=== PATIENT | female | born 1990 | race Caucasian/White ===

== ENCOUNTER 2021-03-07 11:52 | Outpatient (CLI) | payer OTHER ==
[2021-03-07 18:54] LABS: RESPIRATORY SYNCYTIAL VIRUS POSITIVE (Negative)
== END 2021-03-07 23:59 ==
LOC: LAB.N 11:52
PROVIDERS: ATTEND Family Medicine
DX: R07.0 Pain in throat (principal); Z20.822 Contact with and (suspected) exposure to COVID-19
CPT/HCPCS: 87070; 87280

== ENCOUNTER 2021-04-01 15:54 | Outpatient (CLI) | payer OTHER ==
--- NOTE | 2021-04-02 08:29 | Ultrasound Report ---
PROCEDURE: OB First Trimester INDICATIONS: positive test OUTSIDE/PRIOR DATING DATA: Last menstrual period (LMP): 01/08/2021. LMP-based estimated date of delivery (JOE): 10/15/2021. First dating scan (date and location): 04/01/2021. Estimated date of delivery (JOE) from first dating scan: 10/21/2021. TECHNIQUE: Real-time scanning was performed of the fetus and maternal pelvic organs, with image documentation. COMPARISON: None FINDINGS: Embryo: A single living intrauterine gestation is present with a heart rate of 185 bpm. [place]- rump length is 41 mm, corresponding to an 11 week 0 day gestation. Yolk sac is not seen. Measurement variability in dating: +/- 4 weeks by LMP, +/- 7 days by mean sac diameter (use before 6 weeks gestation if crown-rump length not able to be measured), +/- 5 days by crown-rump length (6-12 weeks gestation). Maternal organs: Ovaries demonstrate a right-sided corpus luteal cyst measuring 25 mm.. IMPRESSION: Single living intrauterine gestation as described above. Reviewed by: Rigoberto Borrego MD on 04/02/2021 8:28 AM PST Approved by: Rigoberto Borrego MD on 04/02/2021 8:28 AM PST Station ID: [id number]
== END 2021-04-01 15:55 | disposition home or self-care (01) ==
LOC: DI 15:54
PROVIDERS: ATTEND Obstetrics & Gynecology
DX: Z32.01 Encounter for pregnancy test, result positive (principal); Z36.89 Encounter for other specified antenatal screening
CPT/HCPCS: 36415; 85025; 86592; 86762; 86787; 86803; 86850; 86900; 86901; 87340; 87389

== ENCOUNTER 2021-04-01 16:09 | Outpatient (CLI) | payer OTHER ==
[2021-04-01 16:50] LABS: BASOPHILS % (AUTO) 0.2 %; EOSINOPHILS # (AUTO) 0.2 10^3/uL (0.0-0.7); EOSINOPHILS % (AUTO) 1.2 %; HCT - HEMATOCRIT 41.3 % (37.0-47.0); LYMPHOCYTES # (AUTO) 2.5 10^3/uL (1.5-3.5); LYMPHOCYTES % (AUTO) 19.2 %; MEAN CORPUSCULAR HEMOGLOBIN 30.7 pg (27.0-31.0); MEAN CORPUSCULAR HGB CONC 33.9 g/dL (32.0-36.0); MEAN CORPUSCULAR VOLUME 90.6 fL (81.0-99.0); MEAN PLATELET VOLUME 9.8 fL (7.9-10.8); MONOCYTES # (AUTO) 0.9 10^3/uL (0.0-1.0); NEUTROPHILS # (AUTO) 9.4 10^3/uL (1.5-6.6); PLT - PLATELET COUNT 381 10^3/uL (130-450); RED BLOOD COUNT 4.56 10^6/uL (4.20-5.40); RED CELL DISTRIBUTION WIDTH 12.1 % (12.0-15.0)
[2021-04-04 09:20] LABS: HEPATITIS B SURFACE ANTIGEN NON-REACTIVE (NON-REACTIVE); HEPATITIS C ANTIBODY NON-REACTIVE (NON-REACTIVE)
[2021-04-04 15:06] LABS: HIV AG/AB 4TH GEN NON-REACTIVE (NON-REACTIVE)
== END 2021-04-01 16:10 | disposition home or self-care (01) ==
LOC: LAB 16:09
PROVIDERS: ATTEND Obstetrics & Gynecology
DX: Z36.89 Encounter for other specified antenatal screening (principal)
CPT/HCPCS: 36415; 85025; 86592; 86762; 86787; 86803; 86850; 86900; 86901; 87340; 87389

== ENCOUNTER 2021-05-29 18:09 | Outpatient (CLI) | payer OTHER ==
--- NOTE | 2021-05-30 08:59 | Ultrasound Report ---
PROCEDURE: OB Detailed Eval INDICATIONS: NORMAL SUPERVISION OUTSIDE/PRIOR DATING DATA: Last menstrual period (LMP): 01/08/2021. LMP-based estimated date of delivery (JOE): 10/15/2021. First dating scan (date and location): 11 weeks 0 days. Estimated date of delivery (JOE) from first dating scan: 10/22/2019. The below data below was generated using the ultrasound derived JOE of TECHNIQUE: Real-time scanning was performed of the fetus, with image documentation and biometric measurements. COMPARISON: None. FINDINGS: General: A single living intrauterine gestation is present. Presentation: Variable Placenta: Placental position is posterior, without previa. Amniotic fluid index: 13.6 cm, normal for gestational age. heart rate: 155 beats per minute. Maternal cervical canal: 4.0 cm long; normal length is 2.5 cm or more. biometrics: Biparietal diameter: 4.0 cm. 18 weeks 1 day Head circumference: 15.7 cm. 18 weeks 4 days Abdominal circumference: 12.9 cm. 18 weeks 3 days Femur length: 2.8 cm. 18 weeks 6 days Estimated gestational age from initial scan: 19 weeks 2 days. Composite gestational age from present scan: 18 weeks 3 days Estimated weight and percentile: 249.2 g. 14.3% Measurement variability in biometric dating: +/- 10 days from 12-20 weeks gestation, +/- 2 weeks from 20-30 weeks gestation, +/- 3 weeks at 30 weeks gestation or later. Anatomic survey: Neuro: Ventricles are normal at less than 10 mm. Cisterna magna is normal at 3-11 mm. Cerebellum i s normal in size and morphology. Nuchal skin fold: Normal at less than 6 mm between 14 and 20 weeks gestational age. Face: Nose and lips, facial profile are normal. Spine: No evidence for spina bifida. Heart: Not well seen, however limited views appear normal. Diaphragm: Diaphragm is intact. Stomach: Left-sided stomach is present. Kidneys: No hydronephrosis. Normal is less than 5 mm in 2nd trimester, less than 7 mm in 3rd trimester. Cord: 3 vessel cord has orthotopic insertion. Bladder: Not well seen, however limited views appear normal. Extremities: All 4 extremities are visualized. IMPRESSION: 1. Live intrauterine with a composite ultrasound age of 19 weeks 2 days by initial scan. 2. Estimated weight 249.2 g which is at the 14.3%tile. 3. Visualized anatomy is normal. Reviewed by: Parveen Bobo on 05/30/2021 8:58 AM BEULAH Approved by: Parveen Bobo on 05/30/2021 8:58 AM [facility] Station ID: [id number]
== END 2021-05-29 18:10 | disposition home or self-care (01) ==
LOC: DI 18:09
PROVIDERS: ATTEND Obstetrics & Gynecology
DX: Z34.80 Encounter for supervision of other normal pregnancy, unspecified trimester (principal); Z36.89 Encounter for other specified antenatal screening

== ENCOUNTER 2021-07-19 15:32 | Outpatient (CLI) | payer OTHER ==
[2021-07-19 16:12] LABS: HCT - HEMATOCRIT 38.1 % (37.0-47.0); HGB - HEMOGLOBIN 12.8 g/dL (12.0-16.0); MEAN CORPUSCULAR HEMOGLOBIN 30.8 pg (27.0-31.0); MEAN CORPUSCULAR HGB CONC 33.6 g/dL (32.0-36.0); MEAN CORPUSCULAR VOLUME 91.8 fL (81.0-99.0); MEAN PLATELET VOLUME 9.9 fL (7.9-10.8); RED BLOOD COUNT 4.15 10^6/uL (4.20-5.40); RED CELL DISTRIBUTION WIDTH 12.8 % (12.0-15.0); WHITE BLOOD COUNT 14.9 x10^3/uL (4.8-10.8)
== END 2021-07-19 15:33 | disposition home or self-care (01) ==
LOC: LAB 15:32
PROVIDERS: ATTEND Obstetrics & Gynecology
DX: Z36.89 Encounter for other specified antenatal screening (principal); Z67.91 Unspecified blood type, Rh negative
CPT/HCPCS: 36415; 85027; 86850

== ENCOUNTER 2021-09-09 15:13 | Outpatient (CLI) | payer OTHER ==
[2021-09-09 16:02] LABS: BILIRUBIN,URINE NEGATIVE (NEGATIVE); GLUCOSE, URINE (UA) NEGATIVE (NEGATIVE); KETONES,URINE (UA) NEGATIVE (NEGATIVE); LEUKOCYTE ESTERASE, URINE NEGATIVE (NEGATIVE); NITRITE,URINE NEGATIVE (NEGATIVE); OCCULT BLOOD,URINE NEGATIVE (NEGATIVE); PH,URINE 6.5 PH (5.0-7.5); PROTEIN,URINE NEGATIVE (NEGATIVE); UROBILINOGEN,URINE 0.2 (NORMAL) E.U./dL (NORMAL)
[2021-09-09 16:03] LABS: CLARITY,URINE HAZY (CLEAR)
[2021-09-09 17:04] LABS: BACTERIA,URINE Rare /HPF (None Seen); RBC,URINE 0-5 /HPF (0-5); SQUAMOUS EPITHELIAL CELL,UR MANY Squamous (<= Few); WBC,URINE 0-3 /HPF (0-5)
== END 2021-09-09 15:14 | disposition home or self-care (01) ==
LOC: LAB 15:13
PROVIDERS: ATTEND Obstetrics & Gynecology
DX: Z34.80 Encounter for supervision of other normal pregnancy, unspecified trimester (principal); Z36.89 Encounter for other specified antenatal screening
CPT/HCPCS: 81001; 87086

== ENCOUNTER 2021-09-23 08:00 | Outpatient (CLI) | payer OTHER | END 2021-09-23 23:59 | disposition home or self-care (01) | LOC: LAB 08:00 | PROVIDERS: ATTEND Obstetrics & Gynecology | DX: Z34.80 Encounter for supervision of other normal pregnancy, unspecified trimester (principal); Z36.85 Encounter for antenatal screening for Streptococcus B | CPT/HCPCS: 87797 ==

== ENCOUNTER 2021-10-07 10:33 | Outpatient (CLI) | payer OTHER ==
[2021-10-07 11:01] LABS: BASOPHILS % (AUTO) 0.2 %; EOSINOPHILS % (AUTO) 0.4 %; HCT - HEMATOCRIT 40.4 % (37.0-47.0); HGB - HEMOGLOBIN 13.8 g/dL (12.0-16.0); LYMPHOCYTES # (AUTO) 1.9 10^3/uL (1.5-3.5); LYMPHOCYTES % (AUTO) 20.4 %; MEAN CORPUSCULAR HEMOGLOBIN 31.2 pg (27.0-31.0); MEAN CORPUSCULAR HGB CONC 34.2 g/dL (32.0-36.0); MEAN CORPUSCULAR VOLUME 91.2 fL (81.0-99.0); MEAN PLATELET VOLUME 9.9 fL (7.9-10.8); MONOCYTES % (AUTO) 11.2 %; NEUTROPHILS # (AUTO) 6.1 10^3/uL (1.5-6.6); PLT - PLATELET COUNT 285 10^3/uL (130-450); RED BLOOD COUNT 4.43 10^6/uL (4.20-5.40); RED CELL DISTRIBUTION WIDTH 13.3 % (12.0-15.0); WHITE BLOOD COUNT 9.1 x10^3/uL (4.8-10.8)
== END 2021-10-07 10:34 | disposition home or self-care (01) ==
LOC: LAB 10:33
PROVIDERS: ATTEND Obstetrics & Gynecology
DX: Z01.812 Encounter for preprocedural laboratory examination (principal); O34.211 Maternal care for low transverse scar from previous cesarean delivery; Z20.822 Contact with and (suspected) exposure to COVID-19
CPT/HCPCS: 36415; 85025; 86850; 86900; 86901

== ENCOUNTER 2021-10-08 06:29 | Inpatient (IN) | payer OTHER ==
[2021-10-08] MEDS ORDERED: OXYTOCIN 10 UNIT/ML VIAL IM PRN (06:43)
[2021-10-08] MEDS ORDERED: SODIUM CHLORIDE FLUSH 0.9% 10 ML SYRINGE IVP PRN (06:43)
[2021-10-08] MEDS ORDERED: miSOPROStoL 200 MCG TABLET PR PRN (06:43)
[2021-10-08] MEDS ORDERED: CARBOPROST TROMETHAMINE 250 MCG/ML AMP IM PRN (06:43)
[2021-10-08] MEDS ORDERED: LABETALOL 20 MG/4 ML SYRINGE IVP PRN ×3 (06:43)
[2021-10-08] MEDS ORDERED: METHYLERGONOVINE 0.2 MG/ML VIAL IM PRN (06:43)
[2021-10-08] MEDS ORDERED: NIFEdipine 10 MG CAPSULE PO PRN (06:43)
[2021-10-08] MEDS ORDERED: hydrALAZINE INJ 20 MG/ML VIAL IVP PRN ×2 (06:43)
[2021-10-08] MEDS ORDERED: OXYTOCIN/SODIUM CHLORIDE 500 ML IV PRN ×2 (06:43→10:29)
[2021-10-08] MEDS ORDERED: TRANEXAMIC ACID IN NACL 1,000 MG/100 ML BAG IV PRN (06:43)
[2021-10-08] MEDS ORDERED: miSOPROStoL 200 MCG TABLET BC PRN (06:43)
[2021-10-08] MEDS ORDERED: LACTATED RINGERS 1,000 ML IV SCH ×3 (07:00→11:00)
[2021-10-08] MEDS ORDERED: SODIUM CHLORIDE FLUSH 0.9% 10 ML SYRINGE IVP SCH (07:00)
--- NOTE | 2021-10-08 07:07 | HISTORY & PHYSICAL EXAMINATION ---
Admit History - Care: positive: [facility] Risk/History: positive: Previous
--- NOTE | 2021-10-08 07:18 | HISTORY & PHYSICAL EXAMINATION ---
Admit History - : 4 Parity: 2 : 1 Care: positive: [facility] Risk/History: positive: Previous - Mother's Labs Mother's Blood Type: positive: A Mother's RH: positive: Negative GBS: positive: Group B Strep Positive Rubella Status: positive: Immune - Other Maternal History Other Maternal History: HPI: 31-year-old at 39 weeks 0 days gestation by LMP consistent with 11-week ultrasound. She has good movement. Denies loss of fluid. No BROOKS/BV or RUQP. No vaginal bleeding. Denies nausea and vomiting. Denies urinary urgency or dysuria. All other symptoms reviewed and were negative except per HPI. Course REPEAT and BTL 10/08 NEGATIVE RH Pain control: Wants to consider TAP block as opioids made her severely constipated. Will work on other pain control when possible. LMP: 01/08/2021 JOE of 10/15/2021 by LMP US on 04/01/21 at 11.0 wks c/w LMP dating( JOE 10/21/2021) Final JOE: 10/15/2021 A negative/Rubella immune RHOGAM 28WKS, -GIVEN 07/23/21 VZV:immune Genetic testing: Declines FAS: WNL, 14.3%ile, 3VC, posterior placenta, CORNELIO normal Glucola: Declined OGCT. Profiling normal. Flu: Declined Covid: Declined TDAP: given GBS: Collected 09/23/21 - POSITIVE HSV: Denies in self or partner Breast pump rx: given 08/01/21 MOD: Repeat at 39 weeks PP contraception: Desires permanent sterility, but unsure if she should have tubal ligation, or wait for hysterectomy as she has terrible menses and is considering hysterectomy versus ablation. Gave information on this as well as hormonal IUD. Tubal consents signed 08/30/21. PAP: Plan on completing PMH Anxiety Depression PSH revious section OB History 2017: Spontaneous 2. 11/05/2018: 40 weeks 1 day, , Female, 6 pounds 15 ounces, 3rd degree la ceration, pospartum hemorrhage, chorioamnionitis. 3. 01/12/2020: 39 weeks 3 days, section, Femal, 8 pounds 2 ounces. SH Denies tobacco, alcohol, and drugs Family History Mother: hypothyroidism, diabetes, autoimmune, cervical cancer, bipolar, PTSD Maternal Grandmother: CAD, Stroke, Hypertension Brother: Depression, bipolar, PTSD Allergies No known drug allergies Medications Vitamins Physical exam: Temp Pulse Resp BP Pulse Ox 98.2 F 99 17 121/83 H 10/08/21 07:10 10/08/21 07:10 10/08/21 07:10 10/08/21 07:10 General: Alert, oriented, no acute distress Head: Normal cephalic atraumatic Eyes: PERRLA, extraocular motions intact. Respiratory: Normal rate of respiration. No accessory muscle use, normal respiratory effort. Cardiovascular: Regular rate and rhythm Abdomen: Gravid, nontender, nondistended Extremities: Normal range of motion Neuro: Oriented x3. Normal movements Psych: Appropriate mood and affect. Normal judgment and insight FHT: 155 bpm baseline, moderate variability, accelerations present, no decelerations. Category 1 [place]: quiescent Plan 31-year-old at 39 weeks gestation admitted for repeat section. 1. Repeat section -2 grams cefazolin. -Discuss TAP block for pain control postoperative 2. Previous low transverse section 3. 39 weeks gestation 4. Rh negative -Screen 5. Desires sterility -Plan for bilateral salpingectomy at time of surgery. Meds/Allgy - Allergies Allergies/Adverse Reactions: Allergies Allergy/AdvReac Type Severity Reaction Status Date / Time No Known Drug Allergies Allergy Verified 10/08/21 07:06
[2021-10-08] MEDS ORDERED: CITRIC ACID/SODIUM CITRATE 15 ML UDC PO ONE (08:12)
[2021-10-08] MEDS ORDERED: ACETAMINOPHEN 500 MG TABLET PO ONE (08:15)
[2021-10-08] MEDS ORDERED: METHYLERGONOVINE 0.2 MG/ML VIAL ONE (08:22)
[2021-10-08] MEDS ORDERED: CARBOPROST TROMETHAMINE 250 MCG/ML AMP IM ONE (08:22)
[2021-10-08] MEDS ORDERED: miSOPROStoL 200 MCG TABLET ONE (08:22)
[2021-10-08] MEDS ORDERED: PHENYLEPHRINE 10 MG/ML VIAL ONE (08:23)
[2021-10-08] MEDS ORDERED: OXYTOCIN 10 UNIT/ML VIAL ONE (08:23)
[2021-10-08] MEDS ORDERED: MORPHINE PF 5 MG/10 ML VIAL ONE (08:23)
[2021-10-08] MEDS ORDERED: fentaNYL 100 MCG/2 ML VIAL ONE (08:23)
--- NOTE | 2021-10-08 08:23 | ANESTHESIA ---
Pre-Anesthesia VS, & Labs - Diagnosis Previous section, request sterilization - Procedure repeat section with bilateral tubal ligation Vital Signs: Temp Pulse Resp BP Pulse Ox 36.8 C 99 17 121/83 H 10/08/21 07:10 10/08/21 07:10 10/08/21 07:10 10/08/21 07:10 Height: 5 ft 2 in Weight (kg): 81.737 kg Body Mass Index: 32.9 BMI Classification: Obese - NPO >8 hours - Is Patient ?: Yes - Lab Results Lab results reviewed: Yes Home Medications and Allergies Active Medications Acetaminophen (Acetaminophen 500 Mg Tablet) 1,000 mg PO ONCE SHELBI Carboprost Tromethamine (Carboprost Tromethamine 250 Mcg/Ml Amp) 250 mcg IM .ONCE PRN PRN Reason: Hemorrhage Citric Acid/Sodium Citrate (Citric Acid/Sodium Citrate 15 Ml Udc) 15 ml PO ONCE ONE Stop: 10/08/21 08:13 Gabapentin (Gabapentin 400 Mg Capsule) 600 mg PO ONCE SHELBI Hydralazine HCl (Hydralazine Inj 20 Mg/Ml Vial) 5 - 20 mg IVP Q20M PRN; Protocol PRN Reason: SBP> or= 160 OR DBP> or= 110 Hydralazine HCl (Hydralazine Inj 20 Mg/Ml Vial) 10 mg IVP .ONCE PRN; Protocol PRN Reason: SBP> or= 160 OR DBP> or= 110 Oxytocin/Sodium Chloride (Pitocin/Sodium Chloride) 500 mls @ 999 mls/hr IV PRN PRN; Protocol PRN Reason: POST- HEMORR PREVENTION Tranexamic Acid (Tranexamic 1,000 Mg/100ml-Nacl) 1,000 mg in 100 mls @ 600 mls/hr IV Q30M PRN PRN Reason: EBL >1200mL and within 3hr Lactated Ringer's (Lr) 1,000 mls @ 125 mls/hr IV .Q8H [facility] Last Admin: 10/08/21 07:31 Dose: 125 mls/hr Labetalol HCl (Labetalol 20 Mg/4 Ml Syringe) 20 - 80 mg IVP Q10M PRN; Protocol PRN Reason: SBP> or= 160 OR DBP> or= 110 Labetalol HCl (Labetalol 20 Mg/4 Ml Syringe) 20 mg IVP .ONCE PRN; Protocol PRN Reason: SBP> or= 160 OR DBP> or= 110 Labetalol HCl (Labetalol 20 Mg/4 Ml Syringe) 20 - 40 mg IVP Q10M PRN; Protocol PRN Reason: SBP> or= 160 OR DBP> or= 110 Methylergonovine Maleate (Methylergonovine 0.2 Mg/Ml Vial) 0.2 mg IM .ONCE PRN PRN Reason: Hemorrhage Misoprostol (Misoprostol 200 Mcg Tablet) 600 mcg BC .ONCE PRN PRN Reason: Hemorrhage Misoprostol (Misoprostol 200 Mcg Tablet) 800 mcg [place] .ONCE PRN PRN Reason: Hemorrhage Nifedipine (Nifedipine 10 Mg Capsule) 10 - 20 mg PO Q20M PRN; Protocol PRN Reason: SBP> or= 160 OR DBP> or= 110 Oxytocin (Oxytocin 10 Unit/Ml Vial) 10 unit IM .ONCE PRN PRN Reason: Step One if no IV access. Sodium Chloride (Sodium Chloride Flush 0.9% 10 Ml Syringe) 10 ml IVP PRN PRN PRN Reason: NEEDED PER PROVIDER ORDERS Sodium Chloride (Sodium Chloride Flush 0.9% 10 Ml Syringe) 10 ml IVP Q8H SHELBI Allergies/Adverse Reactions: Allergies Allergy/AdvReac Type Severity Reaction Status Date / Time No Known Drug Allergies Allergy Verified 10/08/21 07:06 Anes History & Medical History - Anesthetic History Anesthesia Complications: reports: No previous complications Family history of Anesthesia Complications: Denies Family history of Malignant Hyperthermia: Denies - Medical History Cardiovascular: reports: None Pulmonary: reports: None Gastrointestinal: reports: None Urinary: reports: None Neuro: reports: None Musculoskeletal: reports: None Endocrine/Autoimmune: reports: None Blood Disorders: reports: None Skin: reports: None Smoking Status: Never smoker Psychosocial: reports: No issues indicated - Surgical History Gynecologic: reports: section - Obstetrical History : 4 Parity: 2 Events: reports: Previous Exam General: Alert, Oriented x3, Cooperative, No acute distress Dental: WNL Mouth Openin Fingerbreadth Neck Mobility: Normal Mallampati classification: II Plan Anesthesia Type: Spinal, Transverse Abdominis Plane (TAP) Block (discussed long acting intrathecal narcotics vs TAP block benefits and risks, patient requested TAP) Regional Block: Per Surgeon's request for Post Op pain control Consent for Procedure(s) Verified and Reviewed: Yes Code Status: Attempt Resuscitation ASA classification: 2-Mild systemic disease Is this case an emergency?: No
[2021-10-08] MEDS ORDERED: GABAPENTIN 400 MG CAPSULE PO ONE (08:30)
[2021-10-08] MEDS ORDERED: GABAPENTIN 300 MG CAPSULE PO ONE (09:00)
[2021-10-08] MEDS ORDERED: ATROPINE ABBOJECT 1 MG/10 ML SYRINGE IVP PRN (09:31)
[2021-10-08] MEDS ORDERED: HYDROmorphone 0.5 MG/0.5 ML SYRINGE IVP PRN (09:31)
[2021-10-08] MEDS ORDERED: ONDANSETRON 4 MG/2 ML VIAL IVP PRN (09:31)
[2021-10-08] MEDS ORDERED: fentaNYL 100 MCG/2 ML VIAL IVP PRN (09:31)
[2021-10-08] MEDS ORDERED: NALOXONE 0.4 MG/ML VIAL IVP PRN (09:31)
[2021-10-08] MEDS ORDERED: ePHEDrine 50 MG/ML VIAL IVP PRN (09:31)
[2021-10-08] MEDS ORDERED: MORPHINE 2 MG/ML CARPUJECT IVP PRN (09:31)
[2021-10-08] MEDS ORDERED: METOCLOPRAMIDE 10 MG/2 ML VIAL IVP PRN (09:31)
[2021-10-08] MEDS ORDERED: ONDANSETRON 4 MG/2 ML VIAL ONE (09:51)
[2021-10-08] MEDS ORDERED: ROPIVACAINE 0.5% PF 20 ML AMPULE ONE (10:12)
[2021-10-08] MEDS ORDERED: SODIUM CHLORIDE 0.9% 10 ML VIAL IVP ONE (10:13)
[2021-10-08] MEDS ORDERED: KETOROLAC 30 MG/ML VIAL ONE (10:21)
[2021-10-08] MEDS ORDERED: ONDANSETRON ODT 4 MG TABLET TL PRN (10:29)
[2021-10-08] MEDS ORDERED: LACTATED RINGERS 500 ML IV ONE (10:37)
--- NOTE | 2021-10-08 10:48 | OPERATIVE REPORT ---
Operative Report - General Admit Date: 10/08/21 Procedure Date: 10/08/21 Planned Procedure: Repeat low transverse with bilateral salpingectomy Pre-Op Diagnosis: prior , Procedure Performed: repeat low transverse and bilateral salpingectomy - Procedure Note Primary Surgeon: Renee Meyer MD Secondary Surgeon: Herve Khalil MD Anesthesia Provider: Petra Santos CRNA Anesthesia Technique: Spinal Pathology: Placenta for routine discard Bilateral fallopian tubes IV Fluids (mL): 900 Estimated Blood Loss (mL): 700 Urine Output (mL): 100 Findings: Normal uterus, fallopian tubes, and ovaries Female in vertex presentation with Apgars 8/9 Copious amniotic fluid, clear Complications: none - Other Other Information/Narrative: Risks benefits and alternatives of the procedure were discussed. Written informed consent was obtained. Patient was taken to the operating room where spinal anesthesia was placed and found to be adequate. She was prepped and draped in the usual sterile fashion in the dorsal supine position with a leftward tilt. Yeung catheter was in place. SCDs were in place and activated. Cefazolin 2 g IV was given as a preoperative antibiotic. Preoperative timeout was performed. A Pfannenstiel incision was made in the skin with a scalpel and carried through the underlying layer of fascia in a combination of sharp and blunt dissection. The fascia was incised in the midline, and the incision was extended laterally with the Andrews scissors. The superior aspect of the fascial incision was grasped with the Ade clamps, elevated, and the underlying rectus muscles were dissected off bluntly and sharply using the Andrews scissors. Attention was then turned to the inferior aspect of the incision which in a similar fashion was grasped, tented up with Ade clamps, and the underlying rectus muscles dissected off bluntly and sharply using Andrews scissors. The rectus muscles were then in the midline. The peritoneum was identified, tented up, and entered bluntly. The peritoneal incision was extended superiorly and inferiorly with good visualization of the bladder. The bladder that blade was then inserted. A bladder flap was not created. The lower uterine segment of the uterus was identified, and incised in a transverse fashion with a scalpel. The uterus was entered bluntly. The uterine incision was extended in a craniocaudal fashion by manual stretch. The bladder blade was removed. The infant was delivered from from vertex position. Baby was wrapped in a warm sterile towel. Delayed cord clamping was performed. After cessation of pulsations, the cord was clamped x2 and cut. The was handed off to the waiting pediatricians. The placenta was removed with manual expression. The uterus was exteriorized and cleared of all clots and debris via manual swipe using Ray-Amy x2. The uterine incision was then repaired in a running locked fashion using 0 Vicryl suture. The incisoin was reinforced with a running imbricating layer again using 0-Vicryl suture. Excellent hemostasis was obtained. Attention was then turned to the salpingectomy portion of the procedure. The left Fallopian tube was grasped with Dk clamps and elevated. It was resected from the underlying mesosalpinx with the LigaSure bipolar sealing and cutting device until the insertion point at the uterine cornua was met. At that point, the fallopian tube was sealed and transected at ints insertion point into the uterine cornua. The tube was removed from the field. This process was repeated on the right side. Both tubes were sent in a single specimen to Pathology. The uterus was returned to the abdomen. The gutters were cleared of all clots and debris. The pelvis was irrigated with warm sloppy wet lap sponges x2. The uterine defect was well visualized in normal anatomic position it was noted again to be hemostatic. The peritoneum was then reapproximated with 2-0 Vicryl in a running fashion. The rectus muscles were then reapproximated using interrupted [id number] sutures using 2-0 Vicryl. Good hemostasis was noted. The fascia was then closed using 0 Vicryl in a running fashion starting from the left lateral edge to the midline. A second suture was used to close the fascia in a running fashion starting from the right lateral edge and meeting in the midline, again using 0-Vicryl. The subcutaneous tissue was then irrigated and closed using 2-0 Vicryl in a running subcutaneous suture. Skin was closed in a running subcuticular suture using 4-0 Monocryl. Steri-Strips were applied to reinforce the incision and dressing was applied. Procedure was well-tolerated and without complication. Sponge lap and needle counts were correct x2. Patient was taken to recovery room in stable condition. Dr. Adame assisted with retraction, delivery of the infant, and suturing.
[2021-10-08] MEDS ORDERED: IBUPROFEN 600 MG TABLET PO SCH (11:00)
[2021-10-08] MEDS: KETOROLAC 30 MG/ML VIAL IVP SCH ×2 (16:05→21:42)
[2021-10-08] MEDS: ACETAMINOPHEN 500 MG TABLET PO SCH (16:06)
[2021-10-08] MEDS: oxyCODONE 5 MG TABLET PO PRN ×2 (16:08→20:21)
--- NOTE | 2021-10-08 16:18 | ANESTHESIA POST OP EVALUATION ---
Anesthesia Post Eval - Post Anesthesia Eval Vitals: Last Vital Signs Temp 37.1 C 10/08/21 12:38 Pulse 84 10/08/21 12:38 Resp 18 10/08/21 12:38 BP 124/75 10/08/21 12:38 Pulse Ox 100 10/08/21 12:38 CV Function Including HR & BP: Stable Pain Control: Satisfactory Nausea & Vomiting: Negative Mental Status: Baseline Respiratory Status: Airway Patent Hydration Status: Satisfactory Anesthesia Complications: None
[2021-10-08] MEDS: SIMETHICONE CHEW 80 MG TABLET PO PRN (17:30)
[2021-10-08] MEDS: DOCUSATE SODIUM 100 MG CAPSULE PO SCH (20:22)
[2021-10-08] MEDS: SODIUM CHLORIDE FLUSH 0.9% 10 ML SYRINGE IVP PRN (21:42)
[2021-10-09] MEDS: ACETAMINOPHEN 500 MG TABLET PO SCH ×2 (00:03→08:31)
[2021-10-09] MEDS: oxyCODONE 5 MG TABLET PO PRN ×4 (00:03→13:52)
[2021-10-09] MEDS: SODIUM CHLORIDE FLUSH 0.9% 10 ML SYRINGE IVP SCH ×3 (01:04→12:18)
[2021-10-09] MEDS: KETOROLAC 30 MG/ML VIAL IVP SCH (04:25)
[2021-10-09] MEDS: SODIUM CHLORIDE FLUSH 0.9% 10 ML SYRINGE IVP PRN (04:26)
[2021-10-09 05:44] LABS: BASOPHILS % (AUTO) 0.2 %; EOSINOPHILS # (AUTO) 0.1 10^3/uL (0.0-0.7); EOSINOPHILS % (AUTO) 0.9 %; HCT - HEMATOCRIT 36.2 % (37.0-47.0); HGB - HEMOGLOBIN 12.3 g/dL (12.0-16.0); LYMPHOCYTES # (AUTO) 1.6 10^3/uL (1.5-3.5); LYMPHOCYTES % (AUTO) 12.4 %; MEAN CORPUSCULAR HEMOGLOBIN 31.2 pg (27.0-31.0); MEAN CORPUSCULAR VOLUME 91.9 fL (81.0-99.0); MONOCYTES # (AUTO) 1.3 10^3/uL (0.0-1.0); MONOCYTES % (AUTO) 9.9 %; NEUTROPHILS # (AUTO) 9.7 10^3/uL (1.5-6.6); NEUTROPHILS % (AUTO) 76.1 %; PLT - PLATELET COUNT 216 10^3/uL (130-450); RED BLOOD COUNT 3.94 10^6/uL (4.20-5.40); RED CELL DISTRIBUTION WIDTH 13.3 % (12.0-15.0); WHITE BLOOD COUNT 12.8 x10^3/uL (4.8-10.8)
[2021-10-09] MEDS: DOCUSATE SODIUM 100 MG CAPSULE PO SCH (08:31)
[2021-10-09] MEDS: SIMETHICONE CHEW 80 MG TABLET PO PRN (09:12)
[2021-10-09 10:00] VITALS: BP 121/75
[2021-10-09] MEDS ORDERED: IBUPROFEN 600 MG TABLET PO SCH (11:00)
--- NOTE | 2021-10-09 12:31 | Discharge Plan ---
Discharge Plan Problem Reviewed?: Yes Disposition: 01 Home, Self Care Condition: Good Diet: Regular Activity Restrictions: Additional Comments (see below) Shower Restrictions: Yes (no tub baths to hot tubs) Driving Restrictions: Yes (No driving while on narcotics/oxycodone) Additional Instructions or Follow Up instructions: PELVIC REST: Nothing in the vagina for 6 weeks: No intercourse, tampons, douching. You are at high risk of uterine infection during this time frame. WARNING SIGNS: Call for: -Fever greater than 100.5 -Pain that does not improve with pain medication -Heavy bleeding in which you are soaking a pad an hour for 2 hours in a row -Incision becomes hot, hard, red, starts to open, or leaks foul smelling fluid -Pain or swelling in one leg and not the other +/- shortness of breath or chest pain LIFTING: No lifting more than 10# for 4 weeks DRIVING: No driving while on narcotics BATHING/WOUND CARE: Ok to shower. Let water run over the incision. Do not soap, scrub, or apply lotion. Pat dry with a clean towel or leonid a interior design program chair. The surgical stickers will start to peel off and you can remove them when they do. Otherwise, the provider will remove them at your one week follow-up appointment. OK to use an unscented sanitary napkin or clean washcloth to keep the incision dry if the belly folds over the incision. DISCHARGE MEDICATIONS: Ibuprofen 600 mg by mouth every 6 hours as needed for pain Acetaminophen 500-1000 mg by mouth every 8 hours as needed for pain Docusate 100-200 mg by mouth twice a day as needed for constipation Oxycodone 2.5-5 mg by mouth every 4 hours as needed for pain No Smoking: If you smoke, Please STOP! Call for help. Follow-up with: JAMEEL STEWART ARNP [Primary Care Provider] - Herve Adame MD [Provider Admit Priv/Credential] -
--- NOTE | 2021-10-09 12:35 | DISCHARGE SUMMARY ---
"Discharge Summary Admit Date: 10/08/21 Discharge Date: 10/09/21 Discharging Provider: Betsy Condition at Discharge: Good Discharge Disposition: 01 Home, Self Care - DIAGNOSES Admission Diagnoses: IUP at 39 wga Hx of prior Desires sterilization Rh negative Discharge Diagnoses with Status of Each Condition: Same and delivery of term gestation Rh incompatibility Respiratory distress of - HPI History of Present Illness: 31-year-old at 39 weeks 0 days gestation by LMP consistent with 11-week ultrasound admitted for repeat and bilateral tubal ligation Endorses good movement. Denied loss of fluid. No BROOKS/BV or RUQP. No vaginal bleeding. Denies nausea and vomiting. Denies urinary urgency or dysuria. All other symptoms reviewed and were negative except per HPI. Cat I tracing at admit. Course REPEAT and BTL 10/08 NEGATIVE RH Pain control: Wants to consider TAP block as opioids made her severely constipated. Will work on other pain control when possible. LMP: 01/08/2021 JOE of 10/15/2021 by LMP US on 04/01/21 at 11.0 wks c/w LMP dating( JOE 10/21/2021) Final JOE: 10/15/2021 A negative/Rubella immune RHOGAM 28WKS, -GIVEN 07/23/21 VZV:immune Genetic testing: Declines FAS: WNL, 14.3%ile, 3VC, posterior placenta, CORNELIO normal Glucola: Declined OGCT. Profiling normal. Flu: Declined Covid: Declined TDAP: given GBS: Collected 09/23/21 - POSITIVE HSV: Denies in self or partner Breast pump rx: given 08/01/21 MOD: Repeat at 39 weeks PP contraception: Desires permanent sterility, but unsure if she should have tubal ligation, or wait for hysterectomy as she has terrible menses and is considering hysterectomy versus ablation. Gave information on this as well as hormonal IUD. Tubal consents signed 08/30/21. PAP: Plan on completing - CONSULTS | PROCEDURES Procedures: Repeat low transverse and bilateral salpingectomy - HOSPITAL COURSE Hospital Course: Patient was admitted for schedule repeat and bilateral salpingectomy. Procedure was uncomplicated and well tolerated form a maternal perspective. She delivered a viable female infant from vertex presentation. Apgars were 7/8. Infant respiratory distress starting at approx 10min requiring PPV and CPAP. Infant was transported to [place] for respiratory support. By POD#1, patient was recovering well. She was up and ambulating, tolerating po, pain was well managed, and she was voiding. Given that infant was discharged to an outside facility, patient was interested in early discharge to be with her daughter in the NICU. As an experienced mother meeting goals for discharge, she was discharged to home on POD#1 after routine discharge instructions were given. Rhogam to be administered prior to maternal discharge for Rh incompatibility. - ALLERGIES Allergies/Adverse Reactions: Allergies Allergy/AdvReac Type Severity Reaction Status Date / Time No Known Drug Allergies Allergy Verified 10/08/21 07:06 - MEDICATIONS Home Medications: Ambulatory Orders Medication Instructions Recorded Confirmed Acetaminophen [Acetaminophen Extra 1,000 mg PO Q8H PRN #60 tablet 10/09/21 Strength] Docusate Sodium 100Mg Capsule 100 - 200 mg PO BID PRN #60 cap 10/09/21 [Colace 100Mg Capsule] Ibuprofen [Motrin] 600 mg PO Q6H PRN #60 tab 10/09/21 oxyCODONE [Roxicodone] 2.5 - 5 mg PO Q4H PRN #24 tablet 10/09/21 - PHYSICAL EXAM AT DISCHARGE General Appearance: positive: No acute distress Neck: positive: Nml inspection Respiratory: positive: Breath sounds nml Cardiovascular: positive: Regular rate & rhythm, No murmur Peripheral Pulses: positive: 2+ Abdomen: positive: Non-tender, Other (S&NT/ND FF below umbi. Dressing removed, incision CDI with steris in place) Skin: positive: Color nml Neurologic/Psychiatric: positive: Oriented x3 - LABS Result Diagrams: 10/09/21 05:37 - FOLLOW UP Follow Up: [address] Adame - TIME SPENT Time Spent in Discharge (Minutes): 30"
[2021-10-09] MEDS ORDERED: RHO(D) IMMUNE GLOBULIN 300 MCG SYRINGE IM ONE (12:48)
== END 2021-10-09 14:58 | disposition home or self-care (01) | DRG 785 ==
LOC: FBP 06:29
PROVIDERS: ADMIT Obstetrics & Gynecology; ATTEND Obstetrics & Gynecology
PROC: 0UT70ZZ Resection of Bilateral Fallopian Tubes, Open Approach (ICD-10-PCS; 2021-10-08)
PROC: 10D00Z1 Extraction of Products of Conception, Low, Open Approach (ICD-10-PCS; principal; 2021-10-08 08:30)
DX: O34.211 Maternal care for low transverse scar from previous cesarean delivery (principal); Z3A.39 39 weeks gestation of pregnancy; Z37.0 Single live birth; Z30.2 Encounter for sterilization; O99.214 Obesity complicating childbirth; O26.893 Other specified pregnancy related conditions, third trimester; Z67.11 Type A blood, Rh negative; O99.824 Streptococcus B carrier state complicating childbirth
CPT/HCPCS: 36415; 83033; 85025; 86900; 86901; A9270; J2274; J7040; J7120

== ENCOUNTER 2021-10-12 22:11 | Outpatient (CLI) | payer OTHER | END 2021-10-12 22:12 | disposition critical access hospital (66) | LOC: EMS 22:11 | DX: O99.893 Other specified diseases and conditions complicating puerperium (principal); R00.1 Bradycardia, unspecified | CPT/HCPCS: A0425; A0427 ==

== ENCOUNTER 2021-10-12 22:26 | Emergency (ER) | payer OTHER ==
[2021-10-12 23:40] LABS: BASOPHILS % (AUTO) 0.4 %; EOSINOPHILS # (AUTO) 0.2 10^3/uL (0.0-0.7); EOSINOPHILS % (AUTO) 1.9 %; HCT - HEMATOCRIT 35.4 % (37.0-47.0); HGB - HEMOGLOBIN 11.8 g/dL (12.0-16.0); LYMPHOCYTES # (AUTO) 2.2 10^3/uL (1.5-3.5); LYMPHOCYTES % (AUTO) 22.7 %; MEAN CORPUSCULAR HEMOGLOBIN 30.5 pg (27.0-31.0); MEAN CORPUSCULAR HGB CONC 33.3 g/dL (32.0-36.0); MEAN CORPUSCULAR VOLUME 91.5 fL (81.0-99.0); MEAN PLATELET VOLUME 10.1 fL (7.9-10.8); MONOCYTES # (AUTO) 0.8 10^3/uL (0.0-1.0); NEUTROPHILS # (AUTO) 6.5 10^3/uL (1.5-6.6); NEUTROPHILS % (AUTO) 66.7 %; PLT - PLATELET COUNT 258 10^3/uL (130-450); RED BLOOD COUNT 3.87 10^6/uL (4.20-5.40); WHITE BLOOD COUNT 9.8 x10^3/uL (4.8-10.8)
[2021-10-12 23:52] LABS: ALBUMIN 2.6 g/dL (3.2-5.5); ALBUMIN/GLOBULIN RATIO 0.8 (1.0-2.2); BILIRUBIN,TOTAL 0.3 mg/dL (0.2-1.0); CALCIUM 8.4 mg/dL (8.5-10.3); CREATININE 0.7 mg/dL (0.4-1.0); MAGNESIUM 1.8 mg/dL (1.7-2.8); PHOSPHORUS 3.8 mg/dL (2.5-4.6); POTASSIUM 3.8 mmol/L (3.5-5.0); TOTAL PROTEIN 5.8 g/dL (6.7-8.2)
--- NOTE | 2021-10-13 01:17 | ED Physician Documentation ---
History of Present Illness - Stated complaint Stated Complaint: low heart rate - Chief complaint Chief Complaint: Cardiac - History obtained from History obtained from: Patient - History of Present Illness Timing: How many days ago (2-3) Pain level max: 0 Pain level now: 0 - Additonal information Additional information: c/o few days of episodic palpitations, feels like heart is pounding but not rapid nor irregular/skipped-beat sensation. Tonight at approximately 7 PM she had another episode and her watch noted her heart rate was as low as 43. Denies h/o similar problem. Patient had delivery 4 days ago. Review of Systems Constitutional: reports: Reviewed and negative Cardiac: reports: Palpitations. 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 - Present Medications Home Medications: Ambulatory Orders Medication Instructions Recorded Confirmed Acetaminophen [Acetaminophen Extra 1,000 mg PO Q8H PRN #60 tablet 10/09/21 Strength] Docusate Sodium 100Mg Capsule 100 - 200 mg PO BID PRN #60 cap 10/09/21 [Colace 100Mg Capsule] Ibuprofen [Motrin] 600 mg PO Q6H PRN #60 tab 10/09/21 oxyCODONE [Roxicodone] 2.5 - 5 mg PO Q4H PRN #24 tablet 10/09/21 - Allergies Allergies/Adverse Reactions: Allergies Allergy/AdvReac Type Severity Reaction Status Date / Time No Known Drug Allergies Allergy Verified 10/08/21 07:06 - Social History Smoking Status: Never smoker PD ED PE NORMAL - Vitals Vital signs reviewed: Yes - General General: Alert and oriented X 3, No acute distress, Well developed/nourished - Cardiac Cardiac: RRR, No murmur, No gallop, No rub - Respiratory Respiratory: No respiratory distress, Clear bilaterally - Abdomen Abdomen: Soft, Non tender - Derm Derm: Normal color, Warm and dry Results - Vitals Vitals: Oxygen O2 Source Room air - EKG (time done) No standard instances Rate: Rate (enter#) (45) Rhythm: Sinus bradycardia [place]: Normal Intervals: Normal SC QRS: Normal Ischemia: Normal ST segments - Labs Labs: Laboratory Tests 10/12/21 10/12/21 23:34 23:34 WBC 9.8 RBC 3.87 L Hgb 11.8 L Hct 35.4 L MCV 91.5 MCH 30.5 MCHC 33.3 RDW 13.0 Plt Count 258 MPV 10.1 Neut # (Auto) 6.5 Lymph # (Auto) 2.2 Wallace # (Auto) 0.8 Eos # (Auto) 0.2 Baso # (Auto) 0.0 Absolute Nucleated RBC 0.00 Nucleated RBC % 0.0 Sodium 139 Potassium 3.8 Chloride 108 Carbon Dioxide 22 Anion Gap 9.0 BUN 20 Creatinine 0.7 Estimated GFR (MDRD) 98 Glucose 102 H Calcium 8.4 L Phosphorus 3.8 Magnesium 1.8 Total Bilirubin 0.3 AST 23 ALT 22 Alkaline Phosphatase 62 Total Protein 5.8 L Albumin 2.6 L Globulin 3.2 Albumin/Globulin Ratio 0.8 L Lipase 31 PD MEDICAL DECISION MAKING - ED course Complexity details: reviewed results, re-evaluated patient, considered differential, d/w patient ED course: 4 days post- after , presents with c/o episodic pounding palpitations . Stable vital signs (SB frequently noted on monitor for most of ED stay) with unremarkable blood tests. Plan is d/c with f/u with PMD, return if symptoms worsen. Results d/w patient and she is comfortable with this plan Departure - Departure Disposition: 01 Home, Self Care Clinical Impression: Sinus bradycardia Condition: Good Instructions: ED Bradycardia Comments: Your pulse rate is low during your emergency department evaluation, but your blood pressures were normal / high. A combination of low pulse and low heart rate is an immediate problem, but your vital signs and lab tests do not suggest an emergent problem at this time. High blood pressure is not normal but is typically a problem over time, and so this can be reevaluated by your doctor in the next few days. Your blood tests were without remarkable/concerning results. Your red blood cell level was slightly below normal; it is not nearly low enough to cause any symptoms let alone concern at this time. Contact your pmo project manager on Thursday to arrange for follow up. Discharge Date/Time: 10/13/21 03:40
[2021-10-13 03:41] VITALS: BP 145/95
== END 2021-10-13 03:40 | disposition home or self-care (01) ==
LOC: EDUNIT# → ED 22:26
DX: R00.1 Bradycardia, unspecified (principal)
CPT/HCPCS: 36415; 80053; 83690; 83735; 84100; 85025; 93005; 99282; 99284

== ENCOUNTER 2021-10-19 12:56 | Emergency (ER) | payer OTHER ==
[2021-10-19 13:10] VITALS: BP 119/83
--- NOTE | 2021-10-19 13:24 | ED Physician Documentation ---
PD HPI WOUND RECHECK - Stated complaint Stated Complaint: OPEN INCISION - Chief complaint Chief Complaint: Wound - Histroy obtained from History obtained from: Patient - History of Present Illness Pain level max: 0 Pain level now: 0 Associated symptoms: Redness, Drainage. No: Fever, Swelling - Additional information Additional information: Patient is a 31-year-old female who presents to the emergency department stating that she had a about 2 weeks ago. She states that the Steri-Strips were removed last week and there was a slight dehiscence on 1 end. She states that he has she has noticed a foul odor over the past 2 to 3 days. Mild drainage. No fever. Mild redness no pain. 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 - Present Medications Home Medications: Ambulatory Orders Medication Instructions Recorded Confirmed Acetaminophen [Acetaminophen Extra 1,000 mg PO Q8H PRN #60 tablet 10/09/21 Strength] Docusate Sodium 100Mg Capsule 100 - 200 mg PO BID PRN #60 cap 10/09/21 [Colace 100Mg Capsule] Ibuprofen [Motrin] 600 mg PO Q6H PRN #60 tab 10/09/21 oxyCODONE [Roxicodone] 2.5 - 5 mg PO Q4H PRN #24 tablet 10/09/21 cephALEXin [Keflex] 500 mg PO Q6H #28 cap 10/19/21 - Allergies Allergies/Adverse Reactions: Allergies Allergy/AdvReac Type Severity Reaction Status Date / Time No Known Drug Allergies Allergy Verified 10/19/21 13:09 - Social History Smoking Status: Never smoker PD ED PE NORMAL - Vitals Vital signs reviewed: Yes - General General: Alert and oriented X 3, No acute distress - HEENT HEENT: Moist mucous membranes - Neck Neck: Supple, no meningeal sign - Abdomen Abdomen: Other (Incision across the lower abdomen appears to be healing well, on the right end of the incision there is a small dehiscence, approximately 1 cm, there is a small amount of purulent drainage from this area.) - Derm Derm: Warm and dry - Neuro Neuro: Alert and oriented X 3 Results - Vitals Vitals: Vital Signs - 24 hr 10/19/21 13:04 Temperature 36.3 C L Heart Rate 87 Respiratory 16 Rate Blood Pressure 119/83 H O2 Saturation 98 Oxygen O2 Source Room air PD MEDICAL DECISION MAKING - ED course Complexity details: considered differential, d/w patient ED course: Patient with likely stitch abscess, but possible early cellulitis as well. Will place on Keflex for home and have her follow-up with her doctor for further care. Patient counseled regarding signs and symptoms for which I believe and urgent re-evaluation would be necessary. Patient with good understanding of and agreement to plan and is comfortable going home at this time This document was made in part using voice recognition software. While efforts are made to proofread this document, sound alike and grammatical errors may occur. Departure - Departure Disposition: 01 Home, Self Care Clinical Impression: Wound cellulitis after surgery Condition: Good Instructions: ED Infec Skin Cellulitis Follow-Up: your,doctor next week for wound check [Other] Prescriptions: cephALEXin [Keflex] 500 mg PO Q6H #28 cap Comments: Take all antibiotics until gone. Return if you worsen. Follow-up with your doctor for further care. Your prescriptions were sent to [facility] in [place]. Warm compresses may help as well.
== END 2021-10-19 13:43 | disposition home or self-care (01) ==
LOC: ED 12:56
DX: O86.01 Infection of obstetric surgical wound, superficial incisional site (principal)
CPT/HCPCS: 99282